=== PATIENT | male | born 1985 | race Caucasian/White ===

== ENCOUNTER 2024-06-25 14:29 | Emergency (ER) | payer OTHER ==
[~2024-06-25] VITALS: Ht 182.9 cm; Wt 90.7 kg
[2024-06-25 14:35] VITALS: O2SAT 98
[2024-06-25 14:42] VITALS: BP 127/99; PULSE 98; RESP 12; TEMP 98; O2SAT 98
== END 2024-06-25 18:10 | disposition home or self-care (01) ==
LOC: ER 14:40
DX: M25.512 Pain in left shoulder (principal); V23.99XA Unspecified rider of other motorcycle injured in collision with car, pick-up truck or van in traffic accident, initial encounter; Y93.89 Activity, other specified; Y92.89 Other specified places as the place of occurrence of the external cause; Y99.8 Other external cause status
CPT/HCPCS: 73030; 99283